=== PATIENT | male | born 1945 | race Caucasian/White ===

== ENCOUNTER → 2016-08-10 | Day surgery (SDC) | payer MEDICARE, BC ==
[~2016-08-10] MED LIST: ACETAMINOPHEN 325MG/HYDROcodone 7.5MG/15ML UDC PO PRN; ALLE60TA PO; AMLO5 PO; AMPICILLIN-SULBACTAM INJ 3 GM VIAL ONE; CARV25TA PO; COZA50TA PO; DILT120T PO; DILTCD120 PO; DO NOT ADM ANY ANTICOAGULANT DRUGS XX PRN; ENAL10TA7 PO; ENAL20TA PO; FAMOTIDINE 20 MG/2 ML VIAL ONE; FLUT1SPR5 EACH NARE; HYDR25TA5 PO; HYDR50TA5 PO; INSULIN HUMAN REGULAR 1,000 UNITS/10 ML VIAL SQ PRN; LACTATED RINGER'S 1000 ML INJ 1,000 ML IV ONE; LACTATED RINGER'S 1000 ML IV SCH; METO50TA PO; MIDAZOLAM HCL 2 MG/2 ML VIAL ONE; OMEP40CA2 PO; PROPOFOL 200 MG/20 ML AMP IV ONE; SODIUM CHLORID 0.9% 500 ML IV SCH; SODIUM CHLORIDE 0.9% INJ 100 ML ONE
[2016-08-10 08:43] VITALS: BP 154/79; PULSE 72; RESP 18; TEMP 97.8; O2SAT 98
[2016-08-10] MEDS: METOPROLOL TARTRATE 25 MG TAB PO PRN (09:10)
[2016-08-10 12:15] VITALS: BP 116/69; PULSE 66; RESP 20; TEMP 98.2; O2SAT 97
--- NOTE | 2016-08-10 19:41 | EKG ---
Date Performed: 08/10/2016 Time Performed: 08:20:13 PTAGE: 70 years EKG: Sinus rhythm MARKED LEFT AXIS DEVIATION LEFT BUNDLE BRANCH BLOCK ABNORMAL ECG PREVIOUS TRACING : 07/19/2015 00.45 Compared to prior tracing no significant change DOCTOR: Ibis Stevenson Interpretating Date/Time 08/10/2016 19:40:14
--- NOTE | 2016-09-01 07:58 | MP ---
cc: RONNIE ALVAREZ M.D. DATE OF OPERATION August 10, [address] Ronnie alvarez PREOPERATIVE DIAGNOSIS Neoplastic lesion left hypopharynx. POSTOPERATIVE DIAGNOSIS Neoplastic lesion left hypopharynx. OPERATION PERFORMED 1. Direct laryngoscopy with biopsy. 2. Biopsy of hypopharynx. INDICATIONS Documented in the history and physical. DESCRIPTION OF OPERATION The patient was taken to OR #2 and placed in the supine position. Following induction of general anesthesia and intubation, a shoulder roll and a Harjit head drape were put in place. Using anterior commissure scope, hypopharynx and larynx were brought into view. The epiglottis, the endolarynx, the pyriform sinuses and the esophageal inlet were free of neoplastic lesions. There was a lesion in the left hypopharyngeal wall extending down toward the pyriform sinuses. Biopsy was obtained from the inferior limit of this lesion; it was passed off the field as specimen. The scope was then removed and a McIvor mouth gag was put in place. Additional biopsies were obtained from the superior pole of the mass in the left tonsil fossa. These were also passed off the field as specimen. Cautery was used to control bleeding in the biopsy site at the superior pole. The mouth gag was then removed and the procedure was terminated. The patient was reversed from anesthesia and taken to Recovery in good condition. There were no complications. Blood loss was 20 mL. MD TRISTA Gr/ELLEN /10:27 AM /7:43 AM
== END | disposition home or self-care (01) ==
LOC: HSDC 07:47
PROVIDERS: ATTEND Otolaryngology
DX: C09.8 Malignant neoplasm of overlapping sites of tonsil (principal); I10 Essential (primary) hypertension
CPT/HCPCS: 00320; 31535; 88305; 88342; 93005; J0295; J2250; J3010; J7120; 88304; 88341